=== PATIENT | female | born 1995 | race Caucasian/White ===

== ENCOUNTER 2016-07-13 19:09 | Emergency (ER) | payer MEDICAID, OTHER ==
[~2016-07-13] VITALS: Ht 162.6 cm; Wt 80.5 kg
[2016-07-13 19:15] VITALS: Ht 162.6 cm; Wt 80.5 kg
[2016-07-13] MEDS ORDERED: HYDROCODONE/APAP (5/325) TAB PO ONE (20:00)
[2016-07-13 20:18] LABS: ADD UMIC YES; URINE BILIRUBIN (Dip) NEGATIVE (NEGATIVE); URINE BLOOD (Dip) TRACE (NEGATIVE); URINE COLOR LT. YELLOW (YELLOW); URINE GLUCOSE (Dip) NEGATIVE (NEGATIVE); URINE KETONES (Dip) NEGATIVE (NEGATIVE); URINE LEUKOCYTE ESTERASE (Dip) 2+ (NEGATIVE); URINE NITRITE (Dip) NEGATIVE (NEGATIVE); URINE TOTAL PROTEIN (Dip) NEGATIVE (NEGATIVE); URINE UROBILINOGEN (Dip) 0.2 E.U./dL (0.1-1.0)
[2016-07-13 20:23] LABS: BASOPHIL # 0.1 10^3/ul (0.0-0.1); BASOPHILS % 0.6 % (0.0-2.0); EOSINOPHILS # 0.2 10^3/ul (0.0-0.5); EOSINOPHILS % 1.6 % (0.0-7.0); HEMATOCRIT 40.8 % (37.0-47.0); HEMOGLOBIN 13.9 g/dl (12.0-16.0); LYMPHOCYTES # 2.6 10^3/ul (0.8-2.9); LYMPHOCYTES % 23.8 % (18.0-55.0); MEAN CORPUSCULAR HEMOGLOBIN 30.5 pg (29.0-33.0); MEAN CORPUSCULAR VOLUME 89.6 fl (72.0-104.0); MEAN PLATELET VOLUME 9.3 fl (7.4-10.4); MONOCYTE # 0.7 10^3/ul (0.3-0.9); MONOCYTES % 6.1 % (0.0-13.0); NEUTROPHIL # 7.5 10^3/ul (1.6-7.5); NEUTROPHILS % 67.9 % (30.0-74.0); PLATELET COUNT 155 10^3/UL (140-440); RED BLOOD COUNT 4.55 10^6/ul (4.20-5.40); WHITE BLOOD COUNT 11.1 10^3/ul (4.8-10.8)
[2016-07-13] MEDS ORDERED: ONDANSETRON (ODT) 4 MG TAB ODT STA (20:23)
--- NOTE | 2016-07-13 20:23 | ERD ---
ER Documentation Chief Complaint Date/Time DATE: 07/13/16 TIME: 20:22 Chief Complaint right sided abd pain x 1 day HPI 20-year-old female otherwise healthy comes in right upper quadrant abdominal pain that started yesterday. It is localized, intermittent, sharp, she also states that she has had painful urination over the last day. She denies fevers , chills, vomiting or diarrhea. She does report she has had nausea. She has not tried anything for the pain yet. ROS All systems reviewed and are negative except as per history of present illness. Medications Home Meds Active Scripts Hydrocodone/Acetaminophen ([place] 5-325 Tablet) 1 Each Tablet, 1 TAB PO Q6H Y for PAIN, #10 TAB Prov:SAQIB MARCELO PA-C 07/13/16 Cephalexin* (Keflex*) 500 Mg Capsule, 500 MG PO TID for 10 Days, CAP Prov:SAQIB MARCELO PA-C 07/13/16 Reported Medications [None] No Conflict Check 09/16/10 Allergies Allergies: Coded Allergies: No Known Drug Allergies (Verified Allergy, Mild, 09/16/10) PMhx/Soc History of Surgery: Yes (DENZEL) Anesthesia Reaction: No Hx Neurological Disorder: No Hx Respiratory Disorders: No Hx Cardiac Disorders: No Hx Psychiatric Problems: No Hx Miscellaneous Medical Probl: No (PT. DENIES MEDICAL HX.) Hx Alcohol Use: No Hx Substance Use: No Hx Tobacco Use: No Physical Exam Vitals Vital Signs Date Time Temp Pulse Resp B/P Pulse Ox O2 Delivery O2 Flow Rate FiO2 07/13/16 21:06 98.1 88 16 123/78 99 Room Air 07/13/16 19:15 97.8 84 20 131/69 100 Physical Exam General: Well-developed, well-nourished. The patient appears in no acute distress. HEENT: Head is normocephalic, atraumatic. No scleral icterus. . Neck: Supple. Nontender. Lungs: Clear to auscultation. Normal air movement. Heart: Regular rate and rhythm. S1 and S2 are normal. No murmurs, gallops, or rubs. Abdomen: Soft, mild tenderness in the right upper quadrant, no peritoneal signs , no guarding, no hepatosplenomegaly, negative Lea's sign, nondistended. Bowel sounds are normoactive. No McBurney's tenderness. Extremities: No clubbing or cyanosis. Normal pulses. Moving extremities x 4. No weakness. Neurologic: Alert and oriented 3. No focal deficits. Skin: Normal turgor. No rash or lesions. Result Diagram: 07/13/16200407/13/162004 Results 24 hrs Laboratory Tests Test 07/13/16 19:55 07/13/16 20:05 Urine Bacteria FEW Urine Bilirubin NEGATIVE Urine Clarity CLEAR Urine Color LT. YELLOW Urine Glucose NEGATIVE% Urine Hemoglobin TRACE Urine Ketones NEGATIVE Urine Leukocyte Esterase 2+ Urine Microscopic RBC 0-2/HPF Urine Microscopic WBC 10-25/HPF Urine Nitrite NEGATIVE Urine Specific [place] <=1.005 Urine Squamous Epithelial Cells MODERATE Urine Total Protein NEGATIVE Urine Urobilinogen 0.2 E.U./dL Urine WBC Clumps FEW Urine pH 5.0 Alanine Aminotransferase (ALT/SGPT) 30IU/L Albumin 4.6g/dl Albumin/Globulin Ratio 1.27 Alkaline Phosphatase 92IU/L Anion Gap 18 Aspartate Amino Transf (AST/SGOT) 33IU/L Basophils # 0.110^3/ul Basophils % 0.6% Blood Urea Nitrogen 8mg/dl Calcium Level 9.8mg/dl Carbon Dioxide Level 28mmol/L Chloride Level 100mmol/L Creatinine 0.65mg/dl Direct Bilirubin 0.00mg/dl Eosinophils # 0.210^3/ul Eosinophils % 1.6% Globulin 3.60g/dl Glucose Level 96mg/dl Hematocrit 40.8% Hemoglobin 13.9g/dl Indirect Bilirubin 0.5mg/dl Lipase 84U/L Lymphocytes # 2.610^3/ul Lymphocytes % 23.8% Mean Corpuscular Hemoglobin 30.5pg Mean Corpuscular Hemoglobin Concent 34.0g/dl Mean Corpuscular Volume 89.6fl Mean Platelet Volume 9.3fl Monocytes # 0.710^3/ul Monocytes % 6.1% Neutrophils # 7.510^3/ul Neutrophils % 67.9% Nucleated Red Blood Cells # 0.010^3/ul Nucleated Red Blood Cells % 0.0/100WBC Platelet Count 94778^3/UL Potassium Level 4.2mmol/L Red Blood Count 4.5510^6/ul Red Cell Distribution Width 13.0% Sodium Level 142mmol/L Total Bilirubin 0.5mg/dl Total Protein 8.2g/dl White Blood Count 11.110^3/ul Current Medications Medications (Trade) Dose Ordered Sig/Jennifer Route PRN Reason Start Time Stop Time Status Last Admin Dose Admin Acetaminophen/ Hydrocodone Bitart ([place] (5/325)) 1 tab ONCE ONCE PO 07/13/16 20:00 07/13/16 20:01 DC 07/13/16 20:07 Ondansetron HCl (Zofran Odt) 8 mg ONCE STAT ODT 07/13/16 20:23 07/13/16 20:24 DC 07/13/16 20:35 Ceftriaxone Sodium (Rocephin) 1 gm ONCE ONCE IM 07/13/16 21:30 07/13/16 21:31 07/13/16 21:20 Lidocaine (Xylocaine 1% (Mdv) 20 ml) 2 ml ONCE ONCE IM 07/13/16 21:30 07/13/16 21:31 07/13/16 21:19 PROCEDURE: US Abdomen (right upper quadrant). CLINICAL INDICATION: Right upper quadrant pain. TECHNIQUE: Multiple real-time longitudinal and transverse images of the right upper quadrant of the abdomen were acquired utilizing a curved array transducer. Images were reviewed on a high-resolution PACS workstation. COMPARISON: Right upper quadrant ultrasound 07/02/2008. FINDINGS: The liver is normal in size and echogenicity without focal mass or intrahepatic biliary dilatation. The gallbladder is normal. There is no pericholecystic fluid or gallbladder wall thickening or gallstones. No intra or extrahepatic biliary dilatation is seen. The common bile duct measures 3.2 mm in maximal dimension. The visualized portions of the pancreas are unremarkable with obscuration of the tail of the pancreas. No free fluid is identified. The right kidney measures 11.2 cm in length. There small echogenic foci within the right kidney which may represent tiny stones. There is no perinephric fluid collection. No hydronephrosis or mass is seen. IMPRESSION: 1. Small echogenic foci within the right kidney which may represent tiny stones. 2. Otherwise unremarkable right upper quadrant ultrasound. RPTAT: HH .Bartolo Chowdhury MD, Date Time Electronically viewed and signed by .Bartolo Chowdhury MD, on 07/13/2016 21: 02 .N/ Procedures/MDM ED course: Patient was given [place]. MDM: 20-year-old female comes in with right upper quadrant abdominal pain for 1 day and nausea, comes in with a urinary tract infection. Workup included CBC, chemistry and urinalysis. She was given Rocephin 1 g IM in the emergency department, she does not have a history of bladder or any pain concerning for kidney stone or a septic kidney stone. She is well-appearing, and afebrile, she has been asked to follow-up with her primary care physicians for recheck in 1-2 days. There is no evidence of acute hepatobiliary process or pancreatitis. Departure Diagnosis: Primary Impression: UTI (urinary tract infection) Condition: SAQIB Royal PA-C Jul 13, 2016 20:23
[2016-07-13 20:32] LABS: CONDITION 1; LH ANALYZER COMMENTS 1; SUSPECT 1; UNCORRECTED WBC 12.1 10^3/ul (4.8-10.8)
[2016-07-13 20:34] LABS: ALBUMIN 4.6 g/dl (3.3-4.9)
[2016-07-13 20:35] LABS: POTASSIUM 4.2 mmol/L (3.5-5.1)
[2016-07-13 20:37] LABS: ALBUMIN/GLOBULIN RATIO 1.27; BILIRUBIN,INDIRECT 0.5 mg/dl (0-1.1); BILIRUBIN,TOTAL 0.5 mg/dl (0.2-1.3); CREATININE 0.65 mg/dl (0.44-1.00); TOTAL PROTEIN 8.2 g/dl (6.1-8.1)
[2016-07-13 20:38] LABS: CALCIUM 9.8 mg/dl (8.4-10.2)
[2016-07-13 20:42] LABS: BACTERIA,URINE FEW; URINE RBCS 0-2 /HPF (0)
[2016-07-13 20:43] LABS: SQUAMOUS EPITHELIAL CELL,UR MODERATE
--- NOTE | 2016-07-13 21:02 | RADRPT ---
PROCEDURE: US Abdomen (right upper quadrant). CLINICAL INDICATION: Right upper quadrant pain. TECHNIQUE: Multiple real-time longitudinal and transverse images of the right upper quadrant of th e abdomen were acquired utilizing a curved array transducer. Images were reviewed on a high-resoluti on PACS workstation. COMPARISON: Right upper quadrant ultrasound 07/02/2008. FINDINGS: The liver is normal in size and echogenicity without focal mass or intrahepatic biliary dilatation. The gallbladder is normal. There is no pericholecystic fluid or gallbladder wall thickening or gal lstones. No intra or extrahepatic biliary dilatation is seen. The common bile duct measures 3.2 mm in maximal dimension. The visualized portions of the pancreas are unremarkable with obscuration of the tail of the pancreas. No free fluid is identified. The right kidney measures 11.2 cm in length. There small echogenic foci within the right kidney whi ch may represent tiny stones. There is no perinephric fluid collection. No hydronephrosis or mass is seen. IMPRESSION: 1. Small echogenic foci within the right kidney which may represent tiny stones. 2. Otherwise unremarkable right upper quadrant ultrasound. RPTAT: HH .Bartolo Chowdhury MD, Date Time Electronically viewed and signed by .Bartolo Chowdhury MD, MD on 07/13/2016 21:02 .N/
[2016-07-13 21:06] VITALS: BP 123/78; PULSE 88; RESP 16; TEMP 98.1
[2016-07-13] MEDS ORDERED: HYDR-906 PO (21:10)
[2016-07-13] MEDS ORDERED: CEPH-443 PO (21:10)
[2016-07-13] MEDS ORDERED: LIDOCAINE 1% (MDV) 20 ML INJ IM ONE (21:30)
[2016-07-13] MEDS ORDERED: CEFTRIAXONE 1 GM INJ IM ONE (21:30)
== END 2016-07-13 21:40 | disposition home or self-care (01) ==
LOC: FTE 19:09
DX: N39.0 Urinary tract infection, site not specified (principal)
CPT/HCPCS: 36415; 76705; 80053; 81001; 83690; 85025; 96372; J0696; Z7502; Z7610; 81003

== ENCOUNTER 2016-12-10 17:22 | Emergency (ER) | payer MEDICAID, OTHER ==
[~2016-12-10] VITALS: Ht 167.6 cm; Wt 77.0 kg
[~2016-12-10 17:22] MED LIST: CEPH-443 PO; HYDR-906 PO
[2016-12-10 17:39] VITALS: Ht 167.6 cm; Wt 77.0 kg
[2016-12-10] MEDS ORDERED: SOD CHLORIDE 0.9% 1,000 ML IV STA (18:27)
[2016-12-10] MEDS ORDERED: ONDANSETRON 4 MG INJ IV STA (18:27)
[2016-12-10 19:08] LABS: ADD SCAN DIFF NO
[2016-12-10 19:10] LABS: BASOPHILS % 0.6 % (0.0-2.0); EOSINOPHILS # 0.2 10^3/ul (0.0-0.5); EOSINOPHILS % 2.3 % (0.0-7.0); HEMATOCRIT 37.9 % (37.0-47.0); HEMOGLOBIN 13.1 g/dl (12.0-16.0); LYMPHOCYTES # 1.8 10^3/ul (0.8-2.9); LYMPHOCYTES % 25.6 % (15.0-51.0); MEAN CORPUSCULAR HEMOGLOBIN 30.3 pg (29.0-33.0); MEAN CORPUSCULAR HGB CONC 34.6 g/dl (32.0-37.0); MEAN CORPUSCULAR VOLUME 87.5 fl (82.0-101.0); MEAN PLATELET VOLUME 10.8 fl (7.4-10.4); MONOCYTE # 0.5 10^3/ul (0.3-0.9); MONOCYTES % 7.1 % (0.0-11.0); NEUTROPHIL # 4.5 10^3/ul (1.6-7.5); NEUTROPHILS % 64.1 % (39.0-77.0); PLATELET COUNT 196 10^3/UL (140-415); RED BLOOD COUNT 4.33 10^6/ul (4.20-5.40); RED CELL DISTRIBUTION WIDTH 11.9 % (11.5-14.5)
[2016-12-10 19:28] LABS: ALBUMIN/GLOBULIN RATIO 1.78; BILIRUBIN,INDIRECT 0.2 mg/dl (0-1.1); BILIRUBIN,TOTAL 0.2 mg/dl (0.2-1.3); CALCIUM 9.8 mg/dl (8.4-10.2); CREATININE 0.71 mg/dl (0.44-1.00); POTASSIUM 3.9 mmol/L (3.5-5.1); TOTAL PROTEIN 7.8 g/dl (6.1-8.1)
[2016-12-10 19:33] LABS: ADD UMIC YES; UR ASCORBIC ACID 40 mg/dL (NEGATIVE); UR BACTERIA FEW /HPF (NONE SEEN); UR BILIRUBIN (Dip) NEGATIVE (NEGATIVE); UR BLOOD (Dip) NEGATIVE (NEGATIVE); UR CLARITY CLOUDY (CLEAR); UR COLOR YELLOW (YELLOW); UR GLUCOSE (Dip) NEGATIVE (NEGATIVE); UR KETONES (Dip) NEGATIVE (NEGATIVE); UR LEUKOCYTE ESTERASE (Dip) 3+ Leu/ul (NEGATIVE); UR MUCUS FEW /HPF (NONE SEEN); UR NITRITE (Dip) NEGATIVE (NEGATIVE); UR RBC 2 /HPF (0-5); UR SPECIFIC GRAVITY (Dip) 1.019 (1.003-1.030); UR SQUAMOUS EPITHELIAL CELL MANY /HPF (FEW); UR TOTAL PROTEIN (Dip) NEGATIVE (NEGATIVE); UR UROBILINOGEN (Dip) NEGATIVE (NEGATIVE)
--- NOTE | 2016-12-10 20:55 | RADRPT ---
PROCEDURE: US OB. CLINICAL INDICATION: Pelvic pain TECHNIQUE: Transabdominal views of the pelvis are available for review. COMPARISON: No prior studies are available for comparison. FINDINGS: There is a single intrauterine gestation with the crown-rump length measuring 1.0 cm and the gestati onal sac measuring 2.4 cm, corresponding to a gestational age of 7 weeks and 2 days. The heart rate is noted at 163 bpm. The ovaries are normal in size and echogenicity. Normal Doppler flow is identified in both ovaries. The right ovary measures 3.5 x 2.8 x 3.9 cm. The left ovary measures 3.9 x 3.2 x 3.6 cm. There is no free fluid. RPTAT: AA IMPRESSION: Single live intrauterine with an estimated gestational age of 7 weeks and 2 days, based on ultrasound measurements. NANCY based on ultrasound measurements is 07/27/2017. .Janes Franco MD, MD Date Time Electronically viewed and signed by .Janes Franco MD, on 12/10/2016 20:55 .S/
[2016-12-10] MEDS ORDERED: ACET500C5 PO (21:00)
[2016-12-10] MEDS ORDERED: NITR-58 PO (21:03)
--- NOTE | 2016-12-10 21:09 | ERD ---
ER Documentation Chief Complaint Date/Time DATE: 12/10/16 TIME: 21:05 Chief Complaint N/V dizziness x 1 week 5 weeks HPI Patient is a 21-year-old female who is who presents to the ED with nausea vomiting and dizziness on and off for the last week. She states that she is approximately 5 weeks . Denies fever or chills. States that she has had nonbloody nonbilious emesis. Denies abdominal pain. Denies pelvic pain or vaginal bleeding. She does have [facility] but is unsure of the name. She has no other complaints. I syncopal episode. Denies chest pain or cough or shortness of breath. Denies leg pain or leg swelling ROS All systems reviewed and are negative except as per history of present illness. Medications Home Meds Active Scripts Nitrofurantoin Monohyd Macrocr* (Macrobid*) 100 Mg Capsr, 100 MG PO BID for 7 Days, CAP Prov:SHAMAR HERNANDEZ PA-C 12/10/16 Acetaminophen* (Tylophen*) 500 Mg Capsule, 1 CAP PO Q6H Y for PAIN AND OR ELEVATED TEMP, #20 CAP Prov:SHAMAR HERNANDEZ PA-C 12/10/16 Hydrocodone/Acetaminophen ([place] 5-325 Tablet) 1 Each Tablet, 1 TAB PO Q6H Y for PAIN, #10 TAB Prov:SAQIB MARCELO PA-C 07/13/16 Cephalexin* (Keflex*) 500 Mg Capsule, 500 MG PO TID for 10 Days, CAP Prov:SAQIB MARCELO PA-C 07/13/16 Reported Medications [None] No Conflict Check 09/16/10 Allergies Allergies: Coded Allergies: No Known Drug Allergies (Verified Allergy, Mild, 09/16/10) PMhx/Soc History of Surgery: Yes (DENZEL) Anesthesia Reaction: No Hx Neurological Disorder: No Hx Respiratory Disorders: No Hx Cardiac Disorders: No Hx Psychiatric Problems: No Hx Miscellaneous Medical Probl: No (PT. DENIES MEDICAL HX.) Hx Alcohol Use: No Hx Substance Use: No Hx Tobacco Use: No Smoking Status: Never smoker FmHx Family History: No coronary disease, No diabetes, No other Physical Exam Vitals Vital Signs Date Time Temp Pulse Resp B/P Pulse Ox O2 Delivery O2 Flow Rate FiO2 12/10/16 17:39 98.3 69 18 112/56 98 Physical Exam GENERAL: Well-developed, well-nourished female. Appears in no acute distress. HEAD: Normocephalic, atraumatic. EYES: Pupils are equally reactive bilaterally. EOMs grossly intact. No conjunctival erythema. ENT: Moist mucous membranes. No uvula deviation. No kissing tonsils. No exudates. NECK: Supple. No lymphadenopathy or thyromegaly. No meningismus. negative kernig. negative brudinski. LUNG: Clear to auscultation bilaterally. No rhonchi, wheezing, rales or coarse breath sounds. HEART: Regular rate and rhythm. No murmurs, rubs or gallops. ABDOMEN: No scars, ecchymosis or rashes noted. Soft, nontender, and nondistended. Positive bowel sounds in all four quadrants. No rebound tenderness , no guarding. (-) McBurneys point tenderness. No CVA tenderness. BACK: No midline tenderness. Extremities: Equal pulses bilaterally. No peripheral clubbing, cyanosis or edema. No unilateral leg swelling. NEUROLOGIC: Alert and oriented. Moving all four extremities. 5/5 strength in all extremities. Normal speech. Steady gait. SKIN: Normal color. Warm and dry. No rashes or lesions. Capillary refill < 2 seconds Result Diagram: 12/10/16185112/10/161851 Results 24 hrs Laboratory Tests Test 12/10/16 18:52 White Blood Count 7.010^3/ul Red Blood Count 4.3310^6/ul Hemoglobin 13.1g/dl Hematocrit 37.9% Mean Corpuscular Volume 87.5fl Mean Corpuscular Hemoglobin 30.3pg Mean Corpuscular Hemoglobin Concent 34.6g/dl Red Cell Distribution Width 11.9% Platelet Count 39288^3/UL Mean Platelet Volume 10.8fl Neutrophils % 64.1% Lymphocytes % 25.6% Monocytes % 7.1% Eosinophils % 2.3% Basophils % 0.6% Nucleated Red Blood Cells % 0.0/100WBC Neutrophils # 4.510^3/ul Lymphocytes # 1.810^3/ul Monocytes # 0.510^3/ul Eosinophils # 0.210^3/ul Basophils # 0.010^3/ul Nucleated Red Blood Cells # 0.010^3/ul Urine Color YELLOW Urine Clarity CLOUDY Urine pH 6.0 Urine Specific [place] 1.019 Urine Ketones NEGATIVEmg/dL Urine Nitrite NEGATIVEmg/dL Urine Bilirubin NEGATIVEmg/dL Urine Urobilinogen NEGATIVEmg/dL Urine Leukocyte Esterase 3+Jesus/ul Urine Microscopic RBC 2/HPF Urine Microscopic WBC 13/HPF Urine Squamous Epithelial Cells MANY/HPF Urine Bacteria FEW/HPF Urine Mucus FEW/HPF Urine Hemoglobin NEGATIVEmg/dL Urine Glucose NEGATIVEmg/dL Urine Total Protein NEGATIVEmg/dl Sodium Level 136mmol/L Potassium Level 3.9mmol/L Chloride Level 99mmol/L Carbon Dioxide Level 26mmol/L Anion Gap 15 Blood Urea Nitrogen 6mg/dl Creatinine 0.71mg/dl Glucose Level 76mg/dl Calcium Level 9.8mg/dl Total Bilirubin 0.2mg/dl Direct Bilirubin 0.00mg/dl Indirect Bilirubin 0.2mg/dl Aspartate Amino Transf (AST/SGOT) 65IU/L Alanine Aminotransferase (ALT/SGPT) 81IU/L Alkaline Phosphatase 68IU/L Total Protein 7.8g/dl Albumin 5.0g/dl Globulin 2.80g/dl Albumin/Globulin Ratio 1.78 Lipase 154U/L Beta HCG, Quantitative 40375.0mIU/ml Current Medications Medications (Trade) Dose Ordered Sig/Jennifer Route PRN Reason Start Time Stop Time Status Last Admin Dose Admin Sodium Chloride (NS) 1,000 ml @ 1,000 mls/hr Q1H STAT IV 12/10/16 18:27 12/10/16 19:26 DC 12/10/16 18:59 Ondansetron HCl (Zofran Inj) 4 mg ONCE STAT IV 12/10/16 18:27 12/10/16 18:30 DC 12/10/16 18:59 Procedures/MDM ER COURSE: I kept the patient and/or family informed of laboratory and diagnostic imaging results throughout the emergency room course. EKG, MONITORS, & DIAGNOSTIC IMAGING: [place] [id number] Radiology Main Line: [phone] DIAGNOSTIC IMAGING REPORT Patient: CARLOS LUNDBERG : 1995 Age: 21 Sex: F MR #: [id number] DOS: 12/10/162012 Ordering MD: SHAMAR HERNANDEZ PA-C Location: FT Room/Bed: PROCEDURE: US OB. CLINICAL INDICATION: Pelvic pain TECHNIQUE: Transabdominal views of the pelvis are available for review. COMPARISON: No prior studies are available for comparison. FINDINGS: There is a single intrauterine gestation with the crown-rump length measuring 1.0 cm and the gestational sac measuring 2.4 cm, corresponding to a gestational age of 7 weeks and 2 days. The heart rate is noted at 163 bpm. The ovaries are normal in size and echogenicity. Normal Doppler flow is identified in both ovaries. The right ovary measures 3.5 x 2.8 x 3.9 cm. The left ovary measures 3.9 x 3.2 x 3.6 cm. There is no free fluid. RPTAT: AA IMPRESSION: Single live intrauterine with an estimated gestational age of 7 weeks and 2 days, based on ultrasound measurements. NANCY based on ultrasound measurements is 07/27/2017. .Janes Franco MD, MD Date Time Electronically viewed and signed by .Janes Franco MD, MD on 12/10/2016 20: 55 .S/ CC: SHAMAR HERNANDEZ PA-C MEDICATIONS: Tylenol. Tolerated well with no adverse reaction. LAB INTERPRETATION: CBC showed no evidence of systemic infection or severe anemia. CMP showed no evidence of electrolyte abnormalities, severe acidosis, alkalosis, renal failure , or liver disease. Lipase showed no evidence of acute pancreatitis. UA shows no nitrites but does show 3+ leukocytes with no hematuria [facility] [place] MEDICAL DECISION MAKING: This is a 21-year-old Female who is who presents with nausea and vomiting on and off 1 week. Vital signs were reviewed. Patient is afebrile. Patient is not hypoxic. She is nontoxic or ill-appearing. Patient's CBC and CMP were within normal limits. Patient does have a UTI. Patient's ultrasound is within normal limits. Low suspicion for threatened . Patient requested an ultrasound in the ED however patient did not have pelvic pain or vaginal bleeding Low suspicion for ovarian torsion, PID, tuboovarian abscess, ectopic , bowel obstruction, pyelonephritis, UTI, appendicitis, cervicitis, septic , molar , HELLP syndrome, preeclampsia, eclampsia, placenta previa, placenta abruptia. Low suspicion for intracranial hemorrhage, meningitis, intracranial mass, concussion, temporal arteritis, stroke, elevated intracranial pressure, seizure. Patient does not show signs of dehydration has moist mucous membranes. DISCHARGE: At this time, patient is stable for discharge and outpatient management with no new complaints during the ER course. Patient was sent home with Macrobid, Tylenol and a copy of all imaging and laboratory studies and to follow-up with OB doctor. Patient will be discharged home with instructions to recheck for new or worsening symptoms such as fever, nausea, weakness, LOC and to follow up with primary care in the next 1-2 days. Patient was advised to return to the ER for any new or worsening symptoms. Plan was discussed and patient and/or family understands and agrees. Home instructions were given. Departure Diagnosis: Primary Impression: Nausea and vomiting Vomiting type: unspecified Vomiting Intractability: non-intractable Qualified Code: R11.2 - Non-intractable vomiting with nausea, unspecified vomiting type Condition: Stable Patient Instructions: Nausea and Vomiting-Adult Referrals: NO PRIMARY,CARE PHYSICIAN (PCP) Additional Instructions: Call your primary care doctor TOMORROW for an appointment during the next 1-2 days.See the doctor sooner or return here if your condition worsens before your appointment time. SHAMAR HERNANDEZ PA-C Dec 10, 2016 21:08
[2016-12-10 21:21] VITALS: BP 112/54; PULSE 75; RESP 18; TEMP 98.6
== END 2016-12-10 21:23 | disposition home or self-care (01) ==
LOC: FTE 17:22
DX: O21.9 Vomiting of pregnancy, unspecified (principal); R10.2 Pelvic and perineal pain; Z3A.01 Less than 8 weeks gestation of pregnancy
CPT/HCPCS: 36415; 76801; 80053; 81001; 83690; 84702; 85025; 96374; J2405; J7030; Z7502

== ENCOUNTER 2016-12-27 12:45 | Emergency (ER) | payer OTHER ==
[~2016-12-27] VITALS: Ht 160 cm; Wt 78.5 kg
[~2016-12-27 12:45] MED LIST changes: +ACET500C5 PO; +NITR-58 PO
[2016-12-27 12:47] VITALS: Ht 160 cm; Wt 78.5 kg
[2016-12-27] MEDS ORDERED: ACETAMINOPHEN 500 MG TAB PO STA (13:50)
[2016-12-27 14:10] LABS: BASOPHILS % 0.4 % (0.0-2.0); EOSINOPHILS # 0.2 10^3/ul (0.0-0.5); EOSINOPHILS % 2.1 % (0.0-7.0); HEMATOCRIT 37.3 % (37.0-47.0); HEMOGLOBIN 13.2 g/dl (12.0-16.0); LYMPHOCYTES # 1.6 10^3/ul (0.8-2.9); LYMPHOCYTES % 19.8 % (15.0-51.0); MEAN CORPUSCULAR HGB CONC 35.4 g/dl (32.0-37.0); MEAN CORPUSCULAR VOLUME 87.6 fl (82.0-101.0); MONOCYTE # 0.5 10^3/ul (0.3-0.9); MONOCYTES % 6.3 % (0.0-11.0); NEUTROPHIL # 5.8 10^3/ul (1.6-7.5); NEUTROPHILS % 71.2 % (39.0-77.0); PLATELET COUNT 183 10^3/UL (140-415); RED BLOOD COUNT 4.26 10^6/ul (4.20-5.40); RED CELL DISTRIBUTION WIDTH 11.9 % (11.5-14.5); WHITE BLOOD COUNT 8.1 10^3/ul (4.8-10.8)
[2016-12-27 14:22] LABS: ADD UMIC YES; UR ASCORBIC ACID NEGATIVE (NEGATIVE); UR BILIRUBIN (Dip) NEGATIVE (NEGATIVE); UR BLOOD (Dip) NEGATIVE (NEGATIVE); UR CLARITY SLIGHTLY CLOUDY (CLEAR); UR COLOR YELLOW (YELLOW); UR GLUCOSE (Dip) NEGATIVE (NEGATIVE); UR KETONES (Dip) NEGATIVE (NEGATIVE); UR LEUKOCYTE ESTERASE (Dip) TRACE Leu/ul (NEGATIVE); UR NITRITE (Dip) NEGATIVE (NEGATIVE); UR RBC 0 /HPF (0-5); UR SPECIFIC GRAVITY (Dip) 1.009 (1.003-1.030); UR SQUAMOUS EPITHELIAL CELL FEW /HPF (FEW); UR TOTAL PROTEIN (Dip) NEGATIVE (NEGATIVE); UR UROBILINOGEN (Dip) NEGATIVE (NEGATIVE)
--- NOTE | 2016-12-27 14:47 | RADRPT ---
PROCEDURE: US OB. CLINICAL INDICATION: Vaginal spotting , pelvic pain TECHNIQUE: Transabdominal and transvaginal views of the pelvis were obtained. COMPARISON: 12/10/16 FINDINGS: There is a single intrauterine gestation with a CRL measuring 2.4 cm, corresponding to a gestational age of 9 weeks and 1 day. The heart tone is not visualized. There is a hypoechoic fluid collection adjacent to the gestational sac, consistent with subchorionic hemorrhage. The right ovary measures 2.7 x 2.6 cm. There is a 1.4 cm simple cyst in the right ovary. The left ovary measures 3.1 x 2.2 x 2.5 cm. There is a 2.2 cm simple cyst in the left ovary. No ovarian or adnexal mass lesion is seen. There is no free fluid. RPTAT: AA IMPRESSION: Single intrauterine with an estimated gestational age of 9 weeks and 1 day, based on ultra sound measurements. No heart tones are identified, consistent with DEMISE. Focal area of subchorionic hemorrhage. .Janes Franco MD, MD Date Time Electronically viewed and signed by .Janes Franco MD, on 12/27/2016 14:47 .S/
--- NOTE | 2016-12-27 14:52 | ERD ---
ER Documentation Chief Complaint Date/Time DATE: 12/27/16 TIME: 14:50 Chief Complaint PELVIC PAIN 9 WEEKS X 2 DAYS HPI Is a 21-year-old female presents to the emergency department today complaining of crampy lower pelvic pain for the past 2 days. States she is approximately 9 weeks . States that she does have some nausea but denies any currently. States she has not taken any medication for the pain. States she wants to "make sure the baby is a quiet". States she did follow up on her last visit to the ER with her [facility]. States her next appointment is in 2 weeks. Denies any vaginal bleeding or dysuria ROS All systems reviewed and are negative except as per history of present illness. Medications Home Meds Active Scripts Acetaminophen* (Tylophen*) 500 Mg Capsule, 1 CAP PO Q6H Y for PAIN AND OR ELEVATED TEMP, #30 CAP Prov:TYRON STEPHENSON PA-C 12/27/16 Nitrofurantoin Monohyd Macrocr* (Macrobid*) 100 Mg Capsr, 100 MG PO BID for 7 Days, CAP Prov:SHAMAR HERNANDEZ PA-C 12/10/16 Acetaminophen* (Tylophen*) 500 Mg Capsule, 1 CAP PO Q6H Y for PAIN AND OR ELEVATED TEMP, #20 CAP Prov:SHAMAR HERNANDEZ PA-C 12/10/16 Hydrocodone/Acetaminophen ([place] 5-325 Tablet) 1 Each Tablet, 1 TAB PO Q6H Y for PAIN, #10 TAB Prov:SAQIB MARCELO PA-C 07/13/16 Cephalexin* (Keflex*) 500 Mg Capsule, 500 MG PO TID for 10 Days, CAP Prov:SAQIB MARCELO PA-C 07/13/16 Reported Medications [None] No Conflict Check 09/16/10 Allergies Allergies: Coded Allergies: No Known Drug Allergies (Verified Allergy, Mild, 09/16/10) PMhx/Soc History of Surgery: Yes (DENZEL) Anesthesia Reaction: No Hx Neurological Disorder: No Hx Respiratory Disorders: No Hx Cardiac Disorders: No Hx Psychiatric Problems: No Hx Miscellaneous Medical Probl: No (PT. DENIES MEDICAL HX.) Hx Alcohol Use: No Hx Substance Use: No Hx Tobacco Use: No Smoking Status: Never smoker Physical Exam Vitals Vital Signs Date Time Temp Pulse Resp B/P Pulse Ox O2 Delivery O2 Flow Rate FiO2 12/27/16 12:47 98.3 78 18 121/61 97 Physical Exam Const: No acute distress Head: Atraumatic Eyes: Normal Conjunctiva ENT: Normal External Ears, Nose and Mouth. Neck: Full range of motion..~ No meningismus. Resp: Clear to auscultation bilaterally Cardio: Regular rate and rhythm, no murmurs Abd: Soft, mild pelvic pain non distended. Normal bowel sounds. No tenderness McBurney's. Skin: No petechiae or rashes Neur: Awake and alert Psych: Normal Mood and Affect Result Diagram: 12/27/16 1358 Results 24 hrs Laboratory Tests Test 12/27/16 13:57 12/27/16 13:58 Urine Color YELLOW Urine Clarity SLIGHTLY CLOUDY Urine pH 7.0 Urine Specific [place] 1.009 Urine Ketones NEGATIVEmg/dL Urine Nitrite NEGATIVEmg/dL Urine Bilirubin NEGATIVEmg/dL Urine Urobilinogen NEGATIVEmg/dL Urine Leukocyte Esterase TRACELeu/ul Urine Microscopic RBC 0/HPF Urine Microscopic WBC 1/HPF Urine Squamous Epithelial Cells FEW/HPF Urine Hemoglobin NEGATIVEmg/dL Urine Glucose NEGATIVEmg/dL Urine Total Protein NEGATIVEmg/dl White Blood Count 8.110^3/ul Red Blood Count 4.2610^6/ul Hemoglobin 13.2g/dl Hematocrit 37.3% Mean Corpuscular Volume 87.6fl Mean Corpuscular Hemoglobin 31.0pg Mean Corpuscular Hemoglobin Concent 35.4g/dl Red Cell Distribution Width 11.9% Platelet Count 19457^3/UL Mean Platelet Volume 11.0fl Neutrophils % 71.2% Lymphocytes % 19.8% Monocytes % 6.3% Eosinophils % 2.1% Basophils % 0.4% Nucleated Red Blood Cells % 0.0/100WBC Neutrophils # 5.810^3/ul Lymphocytes # 1.610^3/ul Monocytes # 0.510^3/ul Eosinophils # 0.210^3/ul Basophils # 0.010^3/ul Nucleated Red Blood Cells # 0.010^3/ul Beta HCG, Quantitative 70566.0mIU/ml Current Medications Medications (Trade) Dose Ordered Sig/Jennifer Route PRN Reason Start Time Stop Time Status Last Admin Dose Admin Acetaminophen (Tylenol Tab) 500 mg ONCE STAT PO 12/27/16 13:50 7/24/17 13:52 DC 12/27/16 14:43 DIAGNOSTIC IMAGING REPORT Patient: CARLOS LUNDBERG : 1995 Age: 21 Sex: F MR #: [id number] DOS: 12/27/16 0000 Ordering MD: TYRON STEPHENSON PA-C Location: [facility] Room/Bed: PROCEDURE: US OB. CLINICAL INDICATION: Vaginal spotting , pelvic pain TECHNIQUE: Transabdominal and transvaginal views of the pelvis were obtained. COMPARISON: 12/10/16 FINDINGS: There is a single intrauterine gestation with a CRL measuring 2.4 cm, corresponding to a gestational age of 9 weeks and 1 day. The heart tone is not visualized. There is a hypoechoic fluid collection adjacent to the gestational sac, consistent with subchorionic hemorrhage. The right ovary measures 2.7 x 2.6 cm. There is a 1.4 cm simple cyst in the right ovary. The left ovary measures 3.1 x 2.2 x 2.5 cm. There is a 2.2 cm simple cyst in the left ovary. No ovarian or adnexal mass lesion is seen. There is no free fluid. RPTAT: AA IMPRESSION: Single intrauterine with an estimated gestational age of 9 weeks and 1 day, based on ultrasound measurements. No heart tones are identified, consistent with DEMISE. Focal area of subchorionic hemorrhage. .Janes Franco MD, MD Date Time Electronically viewed and signed by .Janes Franco MD, MD on 12/27/2016 14: 47 .S/ CC: TYRON STEPHENSON PA-C Procedures/MDM This is a who presents to the emergency department today complaining of pelvic pain. Patient states she is approximately 9 weeks by. Given this I did obtain a complete OB workup. Laboratory work shows no elevated white blood cell count. She is not anemic. Platelets are within normal limits. UA shows trace leukocyte esterase and 1 microscopic white blood cell. Beta quant hCG 26548.0 Rh status B+ Ultrasound shows a single intrauterine with an estimated gestational age of 9 weeks and 1 day. There are no heart tones identified consistent with demise. There is no ovarian or adnexal mass seen. There is no free fluid. There is also a subchorionic hemorrhage. Patient symptoms at this time is consistent with pelvic pain in early and likely demise. This is likely the source of the patient's abdominal pain and cramping patient also has evidence of subchorionic hemorrhage Patient is afebrile and otherwise well-appearing. I have low suspicion for ectopic , tubo ovarian abscess, ovarian torsion. I have explained the results to the patient and her mother. I have explained to the patient that they need to follow-up in 48 hours for a repeat beta quant and repeat ultrasound. At this time the patient is stable for discharge and outpatient management. Patient should follow up with their PCP in the next 1-2 days. They may return to the emergency department sooner for any persistent or worsening of symptoms. Patient understood and agreed with the plan. Departure Diagnosis: Primary Impression: Pelvic pain complicating Condition: TYRON Ny PA-C Dec 27, 2016 14:52
[2016-12-27] MEDS ORDERED: ACET500C5 PO (15:37)
[2016-12-27 16:04] VITALS: BP 122/62; PULSE 76; RESP 18; TEMP 98.4
== END 2016-12-27 15:55 | disposition home or self-care (01) ==
LOC: FTE 12:45
DX: O26.891 Other specified pregnancy related conditions, first trimester (principal); R10.2 Pelvic and perineal pain; Z3A.09 9 weeks gestation of pregnancy
CPT/HCPCS: 36415; 76801; 81001; 84702; 85025; 86900; 86901; Z7502; Z7610

== ENCOUNTER 2017-01-24 00:57 | Emergency (ER) | payer OTHER ==
[~2017-01-24] VITALS: Ht 167.6 cm; Wt 80.0 kg
[2017-01-24 01:06] VITALS: Ht 167.6 cm; Wt 80.0 kg
[2017-01-24] MEDS ORDERED: SOD CHLORIDE 0.9% 1,000 ML IV ONE (01:30)
--- NOTE | 2017-01-24 01:34 | ERD ---
ER Documentation Chief Complaint Date/Time DATE: 01/24/17 TIME: 01:30 Chief Complaint 12 weeks , vag bleed, suprapubic pain HPI 21-year-old female presents here in the emergency department for complaints of vaginal bleeding that started tonight, describes the bleeding as heavy bleeding , soaked 3-4 pads started 6 PM last night. Patient is complaining of suprapubic pain, sharp pain, 8/10 scale, accompanying the vaginal bleeding.. Patient is approximately 12 weeks , 2 para 0 1. LMP 10/20/2016. She was seen here 1 month ago, was told to be 9 weeks and does not have any heart tone, most likely ongoing demise and . Patient denies any fever or chills. Patient denies any dysuria. Patient denies any flank pain or abdominal pain. ROS All systems reviewed and are negative except as per history of present illness. Medications Home Meds Active Scripts Acetaminophen* (Tylophen*) 500 Mg Capsule, 1 CAP PO Q6H Y for PAIN AND OR ELEVATED TEMP, #30 CAP Prov:TYRON STEPHENSON PA-C 12/27/16 Nitrofurantoin Monohyd Macrocr* (Macrobid*) 100 Mg Capsr, 100 MG PO BID for 7 Days, CAP Prov:SHAMAR HERNANDEZ PA-C 12/10/16 Acetaminophen* (Tylophen*) 500 Mg Capsule, 1 CAP PO Q6H Y for PAIN AND OR ELEVATED TEMP, #20 CAP Prov:SHAMAR HERNANDEZ PA-C 12/10/16 Hydrocodone/Acetaminophen ([place] 5-325 Tablet) 1 Each Tablet, 1 TAB PO Q6H Y for PAIN, #10 TAB Prov:SAQIB MARCELO PA-C 07/13/16 Cephalexin* (Keflex*) 500 Mg Capsule, 500 MG PO TID for 10 Days, CAP Prov:SAQIB MARCELO PA-C 07/13/16 Reported Medications [None] No Conflict Check 09/16/10 Allergies Allergies: Coded Allergies: No Known Drug Allergies (Verified Allergy, Mild, 09/16/10) PMhx/Soc History of Surgery: Yes (cholecystectomy) Anesthesia Reaction: No Hx Neurological Disorder: No Hx Respiratory Disorders: No Hx Cardiac Disorders: No Hx Psychiatric Problems: No Hx Miscellaneous Medical Probl: No (PT. DENIES MEDICAL HX.) Hx Alcohol Use: No Hx Substance Use: No Hx Tobacco Use: No Smoking Status: Never smoker FmHx Family History: No coronary disease, No diabetes, No other Physical Exam Vitals Vital Signs Date Time Temp Pulse Resp B/P Pulse Ox O2 Delivery O2 Flow Rate FiO2 01/24/17 01:06 98.2 64 22 114/61 98 Physical Exam GENERAL: The patient is well developed and appropriate for usual state of health, in no apparent distress. CHEST: Clear to auscultation bilaterally. There are no rales, wheezes or rhonchi. HEART: Regular rate and rhythm. No murmurs, clicks, rubs or gallops. No S3 or S4. ABDOMEN: Soft, nontender and nondistended. Good bowel sounds. No rebound or guarding. No gross peritonitis. No gross organomegaly or masses. No Lea sign or McBurney point tenderness. BACK: No midline or flank tenderness. EXTREMITIES: Equal pulses bilaterally. There is no peripheral clubbing, cyanosis or edema. No focal swelling or erythema. Full range of motion. Grossly neurovascularly intact. NEURO: Alert and oriented. Cranial nerves 2-12 intact. Motor strength in all 4 extremities with 5/5 strength. Sensation grossly intact. Normal speech and gait. SKIN: There is no apparent rash or petechia. The skin is warm and dry. HEMATOLOGIC AND LYMPHATIC: There is no evidence of excessive bruising or lymphedema. No gross cervical, axillary, or inguinal lymphadenopathy. VAGINAL: Moderate amount of blood in the vaginal vault, cervical os is closed. No cervical motion tenderness or adnexal tenderness noted. Result Diagram: 01/24/17 0145 Results 24 hrs Laboratory Tests Test 01/24/17 01:45 White Blood Count 10.710^3/ul Red Blood Count 4.3410^6/ul Hemoglobin 13.2g/dl Hematocrit 37.2% Mean Corpuscular Volume 85.7fl Mean Corpuscular Hemoglobin 30.4pg Mean Corpuscular Hemoglobin Concent 35.5g/dl Red Cell Distribution Width 11.9% Platelet Count 22248^3/UL Mean Platelet Volume 10.5fl Neutrophils % 76.8% Lymphocytes % 14.7% Monocytes % 5.1% Eosinophils % 2.6% Basophils % 0.4% Nucleated Red Blood Cells % 0.0/100WBC Neutrophils # (Manual) 810^3/ul Lymphocytes # 1.610^3/ul Monocytes # 0.510^3/ul Eosinophils # 0.310^3/ul Basophils # 0.010^3/ul Nucleated Red Blood Cells # 0.010^3/ul Urine Color RED Urine Clarity CLEAR Urine pH 6.0 Urine Specific [place] 1.006 Urine Ketones NEGATIVEmg/dL Urine Nitrite NEGATIVEmg/dL Urine Bilirubin NEGATIVEmg/dL Urine Urobilinogen NEGATIVEmg/dL Urine Leukocyte Esterase NEGATIVELeu/ul Urine Microscopic RBC > 182/HPF Urine Microscopic WBC 4/HPF Urine Bacteria MODERATE/HPF Urine Hemoglobin 2+mg/dL Urine Glucose 1+mg/dL Urine Total Protein 2+mg/dl Beta HCG, Quantitative 2447.4mIU/ml Current Medications Medications (Trade) Dose Ordered Sig/Jennifer Route PRN Reason Start Time Stop Time Status Last Admin Dose Admin Sodium Chloride (NS) 1,000 ml @ 1,000 mls/hr Q1H ONCE IV 01/24/17 01:30 01/24/17 02:29 DC 01/24/17 01:54 Morphine Sulfate (morphine) 4 mg ONCE STAT IV 01/24/17 03:01 01/24/17 03:04 DC 01/24/17 03:16 Ondansetron HCl (Zofran Inj) 4 mg ONCE STAT IV 01/24/17 03:01 01/24/17 03:04 DC 01/24/17 03:15 Ketorolac Tromethamine (Toradol) 30 mg ONCE STAT IV 01/24/17 03:02 01/24/17 03:04 DC 01/24/17 03:16 Normal saline IV bolus was given here in emergency department for rehydration, patient tolerated IV fluids.Patient was given medication for pain here in emergency department, after treatment, patient verbalized feeling much better. Patient's pain is improved. Zofran was given to prevent vomiting. PROCEDURE: US OB. CLINICAL INDICATION: Vaginal spotting , pelvic pain TECHNIQUE: Transabdominal and transvaginal views of the pelvis were obtained. COMPARISON: 12/10/16 FINDINGS: There is a single intrauterine gestation with a CRL measuring 2.4 cm, corresponding to a gestational age of 9 weeks and 1 day. The heart tone is not visualized. There is a hypoechoic fluid collection adjacent to the gestational sac, consistent with subchorionic hemorrhage. The right ovary measures 2.7 x 2.6 cm. There is a 1.4 cm simple cyst in the right ovary. The left ovary measures 3.1 x 2.2 x 2.5 cm. There is a 2.2 cm simple cyst in the left ovary. No ovarian or adnexal mass lesion is seen. There is no free fluid. RPTAT: AA IMPRESSION: Single intrauterine with an estimated gestational age of 9 weeks and 1 day, based on ultrasound measurements. No heart tones are identified, consistent with DEMISE. Focal area of subchorionic hemorrhage. .Janes Franco MD, Date Time Electronically viewed and signed by .Janes Franco MD, on 12/27/2016 14: 47 .S/ CC: TYRON STEPHENSON PA-C PROCEDURE: US OB. CLINICAL INDICATION: Vaginal bleeding status post spontaneous . Clinical estimated gestational age is 13 weeks 5 days TECHNIQUE: Transabdominal views of the pelvis are available for review. COMPARISON: 12/27/2016 FINDINGS: The uterus measures 9.2 x 5.3 x 4 cm. The previously seen failed intrauterine seen on the previous study is no longer seen. The thickness of the heterogeneous echotexture endometrium equals 1.6 cm. There is vascular flow in the endometrium. The findings could be secondary to retained products of conception. Right ovary is not seen. The left ovary measures 4.5 x 2.7 x 3.7 cm contains a 2.4 cm follicle. Color flow and spectral analysis demonstrates normal arterial and venous flow in the left ovary. No adnexal mass or free intrapelvic fluid is seen. IMPRESSION: Status post spontaneous . Vascular flow in the mildly thickened heterogeneous endometrium could be secondary to retained products of conception. Right ovary not seen. Please see above. RPTAT: HJES .Flavio Goldberg MD, Date Time Electronically viewed and signed by .Flavio Goldberg MD, on 01/24/2017 02:44 .S/ CC: ETHEL HASSAN NP Procedures/MDM Medical Decision Making: Patients vaginal bleeding is most likely consistent of possible continuous spontaneous . Patient does not show any evidence of hypovolemic shock. Patients hemoglobin and hematocrit is stable. There is low suspicion for ectopic . KAELYN results show no intrauterine , the previous ultrasound done 1 month ago showed possible demise BetaHCG Quantitative is lower compared to month ago The patient is Rh+, does not need RhoGAM this time. There is no signs of symptoms of dehydration. There is low suspicion for sepsis. Patient appears well and is hemodynamically stable. Disposition: Home. Condition: Stable Prescription: Ibuprofen, [place] Instructions: Patient is advised to do bed rest, avoid heavy lifting, and avoid having sex until cleared by OB doctor. Patient is advised to follow up with OB doctor in the next 1-2 days for further evaluation, possible D&C if bleeding does not continue to stop. Patient is advised that is symptoms are worst, severe bleeding, dizziness, severe abdominal pain, fever, worst signs and symptoms to return to the emergency department immediately. Departure Diagnosis: Primary Impression: Spontaneous Condition: Stable Patient Instructions: Miscarriage, Spontaneous (Completed) Additional Instructions: Patient is advised to do bed rest, avoid heavy lifting, and avoid having sex until cleared by OB doctor. Patient is advised to follow up with OB doctor in the next 1-2 days for further evaluation, possible D&C if bleeding does not continue to stop. Patient is advised that is symptoms are worst, severe bleeding , dizziness, severe abdominal pain, fever, worst signs and symptoms to return to the emergency department immediately. ETHEL HASSAN NP Jan 24, 2017 01:33
[2017-01-24 01:56] LABS: BASOPHILS % 0.4 % (0.0-2.0); EOSINOPHILS # 0.3 10^3/ul (0.0-0.5); EOSINOPHILS % 2.6 % (0.0-7.0); HEMATOCRIT 37.2 % (37.0-47.0); HEMOGLOBIN 13.2 g/dl (12.0-16.0); LYMPHOCYTES # 1.6 10^3/ul (0.8-2.9); LYMPHOCYTES % 14.7 % (15.0-51.0); MEAN CORPUSCULAR HEMOGLOBIN 30.4 pg (29.0-33.0); MEAN CORPUSCULAR HGB CONC 35.5 g/dl (32.0-37.0); MEAN CORPUSCULAR VOLUME 85.7 fl (82.0-101.0); MEAN PLATELET VOLUME 10.5 fl (7.4-10.4); MONOCYTE # 0.5 10^3/ul (0.3-0.9); MONOCYTES % 5.1 % (0.0-11.0); NEUTROPHILS % 76.8 % (39.0-77.0); PLATELET COUNT 176 10^3/UL (140-415); RED BLOOD COUNT 4.34 10^6/ul (4.20-5.40); RED CELL DISTRIBUTION WIDTH 11.9 % (11.5-14.5); WHITE BLOOD COUNT 10.7 10^3/ul (4.8-10.8)
[2017-01-24 02:32] LABS: ADD UMIC YES; UR ASCORBIC ACID NEGATIVE (NEGATIVE); UR BACTERIA MODERATE /HPF (NONE SEEN); UR BILIRUBIN (Dip) NEGATIVE (NEGATIVE); UR BLOOD (Dip) 2+ mg/dL (NEGATIVE); UR CLARITY CLEAR (CLEAR); UR COLOR RED (YELLOW); UR GLUCOSE (Dip) 1+ mg/dL (NEGATIVE); UR KETONES (Dip) NEGATIVE (NEGATIVE); UR LEUKOCYTE ESTERASE (Dip) NEGATIVE Leu/ul (NEGATIVE); UR NITRITE (Dip) NEGATIVE (NEGATIVE); UR RBC > 182 /HPF (0-5); UR SPECIFIC GRAVITY (Dip) 1.006 (1.003-1.030); UR TOTAL PROTEIN (Dip) 2+ mg/dl (NEGATIVE); UR UROBILINOGEN (Dip) NEGATIVE (NEGATIVE)
--- NOTE | 2017-01-24 02:45 | RADRPT ---
PROCEDURE: US OB. CLINICAL INDICATION: Vaginal bleeding status post spontaneous . Clinical estimated gesta tional age is 13 weeks 5 days TECHNIQUE: Transabdominal views of the pelvis are available for review. COMPARISON: 12/27/2016 FINDINGS: The uterus measures 9.2 x 5.3 x 4 cm. The previously seen failed intrauterine seen on the previous study is no longer seen. The thickness of the heterogeneous echotexture endometrium equals 1.6 cm. There is vascular flow in the endometrium. The findings could be secondary to retained pro ducts of conception. Right ovary is not seen. The left ovary measures 4.5 x 2.7 x 3.7 cm contains a 2.4 cm follicle. Color flow and spectral analysis demonstrates normal arterial and venous flow in the left ovary. No adnexal mass or free intrapelvic fluid is seen. IMPRESSION: Status post spontaneous . Vascular flow in the mildly thickened heterogeneous endometrium c ould be secondary to retained products of conception. Right ovary not seen. Please see above. RPTAT: HJES .Flavio Goldberg MD, MD Date Time Electronically viewed and signed by .Flavio Goldberg MD, MD on 01/24/2017 02:44 .S/
[2017-01-24] MEDS ORDERED: morphine 4 MG/ML VIAL IV STA (03:01)
[2017-01-24] MEDS ORDERED: ONDANSETRON 4 MG INJ IV STA (03:01)
[2017-01-24] MEDS ORDERED: KETOROLAC 30 MG INJ IV STA (03:02)
[2017-01-24] MEDS ORDERED: HYDR-906 PO (03:35)
[2017-01-24] MEDS ORDERED: IBUP800T25 PO (03:35)
== END 2017-01-24 03:46 | disposition home or self-care (01) ==
LOC: FTE 00:57
DX: O03.9 Complete or unspecified spontaneous abortion without complication (principal); R10.2 Pelvic and perineal pain
CPT/HCPCS: 36415; 76801; 81001; 84702; 85025; 86900; 86901; 96374; 96375; J1885; J2270; J2405; J7030; Z7502

== ENCOUNTER 2017-11-22 15:04 | Outpatient (CLI) | END 2017-11-22 18:41 | disposition home or self-care (01) ==

== ENCOUNTER 2018-02-21 13:21 | Outpatient (CLI) | END 2018-02-21 15:45 | disposition home or self-care (01) ==

== ENCOUNTER 2018-03-08 04:10 | Inpatient (IN) | END 2018-03-11 16:00 | disposition home or self-care (01) | DRG 807 ==